=== PATIENT | male | born 1975 | race Caucasian/White ===

== ENCOUNTER 2016-11-28 12:04 | Emergency (ER) | payer OTHER ==
[~2016-11-28] VITALS: Ht 175.3 cm; Wt 68.4 kg
[2016-11-28] MEDS ORDERED: ONDANSETRON 4MG/2ML VIAL (J2405) IV ONE (13:00)
[2016-11-28] MEDS ORDERED: NS 1,000 ML IV ONE ×2 (13:00→14:00)
[2016-11-28 13:23] LABS: ALBUMIN 4.3 GM/DL (3.2-5.2); ALBUMIN/GLOBULIN RATIO 1.48 (1.00-1.93); ALKALINE PHOSPHATASE 87 U/L (45-117); ALT/SGPT 27 U/L (12-78); ANION GAP 12 MEQ/L (8-16); AST/SGOT 16 U/L (15-37); BILIRUBIN,DIRECT 0.5 MG/DL (0.0-0.2); BILIRUBIN,TOTAL 1.5 MG/DL (0.2-1.0); BLOOD UREA NITROGEN 14 MG/DL (7-18); CALCIUM LEVEL 9.5 MG/DL (8.5-10.1); CARBON DIOXIDE LEVEL 21 MEQ/L (21-32); CHLORIDE LEVEL 108 MEQ/L (98-107); CREATININE FOR GFR 1.03 MG/DL (0.70-1.30); GLOMERULAR FILTRATION RATE > 60.0 (>60); GLUCOSE, FASTING 130 MG/DL (70-105); MAGNESIUM LEVEL 1.8 MG/DL (1.8-2.4); POTASSIUM SERUM 3.7 MEQ/L (3.5-5.1); SODIUM LEVEL 141 MEQ/L (136-145); TOTAL PROTEIN 7.2 GM/DL (6.4-8.2)
[2016-11-28 13:36] LABS: BASO # 0.2 K/mm3 (0.0-0.2); BASO % 0.9 % (0.0-1.0); EOS % 0.2 % (0.0-3.0); LARGE UNSTAINED CELL # 0.3 K/mm3 (0.0-0.4); LYMPH # 1.3 K/mm3 (1.5-4.5); LYMPH % 5.1 % (24.0-44.0); MEAN CORPUSCULAR HEMOGLOBIN 29.7 pg (27.0-33.0); MEAN CORPUSCULAR HGB CONC 34.8 g/dl (32.0-36.5); MEAN CORPUSCULAR VOLUME 85.4 fl (80.0-96.0); MONO # 0.8 K/mm3 (0.0-0.8); MONO % 3.2 % (0.0-5.0); NEUTROPHILS # 22.9 K/mm3 (1.8-7.7); NEUTROPHILS % 89.7 % (36.0-66.0); PLATELET COUNT, AUTOMATED 223 k/mm3 (150-450); RED CELL DISTRIBUTION WIDTH 13.4 % (11.5-14.5); WHITE BLOOD COUNT 25.5 K/mm3 (4.0-10.0)
[2016-11-28] MEDS ORDERED: METOCLOPRAMIDE INJ 10MG/2ML VIAL (J2765) IV ONE (14:00)
[2016-11-28 15:12] LABS: METHADONE URINE NEGATIVE (NEGATIVE)
[2016-11-28] MEDS ORDERED: ISOVUE-370 76% 100ML VIAL (Q9967) As Ordered ONE (15:40)
[2016-11-28] MEDS ORDERED: PROMETHAZINE INJ 25 MG/ML VIAL (J2550) IV ONE (15:45)
[2016-11-28] MEDS ORDERED: ZOFR4TAB3 PO (16:37)
[2016-11-28 16:55] VITALS: BP 130/75
--- NOTE | 2016-11-29 06:44 | REP ---
RIGHT UPPER QUADRANT ULTRASOUND: Real-time sonographic evaluation of right upper quadrant performed. The gallbladder demonstrates no evidence of intraluminal sludge or calculi, wall thickening or pericholecystic fluid. There is no intrahepatic or extrahepatic biliary dilatation, common bile duct measuring 4 mm in diameter. The liver and pancreas demonstrate no gross abnormality, pancreas is not optimally seen due to overlying bowel gas. Right kidney demonstrates no hydronephrosis or nephrolithiasis with normal size at 10.6 cm in length. IMPRESSION: Essentially negative right upper quadrant ultrasound. Signed by Martinez Silva MD 11/29/2016 07:23 P
--- NOTE | 2016-11-29 07:00 | REP ---
CT ABDOMEN AND PELVIS WITH IV CONTRAST: TECHNIQUE: Axial contrast enhanced images from the lung bases to the pubic symphysis using 100 mL Isovue 370 intravenous contrast material with multiplanar reformations. The visualized lung bases are clear. The liver, spleen, adrenals, pancreas and kidneys are normal in appearance. There is no hydronephrosis. There is no abdominal aortic aneurysm with mild atherosclerotic calcifications present. There is no adenopathy. There is no free air or free fluid. There is no bowel wall thickening. The appendix is normal. No pelvic mass is seen. Urinary bladder is mildly distended and appears grossly unremarkable. IMPRESSION: Negative CT abdomen and pelvis with IV contrast. No evidence of acute abnormality. No acute appendicitis. No free air or free fluid. Signed by Martinez Silva MD 11/29/2016 07:23 P
== END 2016-11-28 17:22 | disposition home or self-care (01) ==
LOC: M ED 12:58
DX: G44.209 Tension-type headache, unspecified, not intractable (principal); R10.11 Right upper quadrant pain; R11.0 Nausea; F17.200 Nicotine dependence, unspecified, uncomplicated; F12.10 Cannabis abuse, uncomplicated
CPT/HCPCS: 74177; 76705; 80048; 80076; 80307; 81001; 82550; 83690; 83735; 85025; 96361; 96374; 96375; 99283; J2405; J2765; Q9967

== ENCOUNTER → 2024-01-13 | Outpatient (CLI) | payer OTHER ==
[~2024-01-13] MED LIST: ZOFR4TAB14 PO
[2024-01-13 18:55] LABS: BASO # 0.1 10^3/uL (0.0-0.2); BASO % 0.8 % (0.0-1.0); EOS # 0.3 10^3/uL (0.0-0.5); EOS % 2.2 % (0.0-3.0); HEMATOCRIT 47.7 % (42.0-52.0); HEMOGLOBIN 15.9 g/dl (13.5-17.5); LYMPH # 2.8 10^3/uL (1.5-5.0); LYMPH % 22.2 % (24.0-44.0); MEAN CORPUSCULAR HEMOGLOBIN 28.1 pg (27.0-33.0); MEAN CORPUSCULAR HGB CONC 33.3 g/dl (32.0-36.5); MEAN CORPUSCULAR VOLUME 84.4 fl (80.0-96.0); MONO # 0.9 10^3/uL (0.0-0.8); MONO % 7.5 % (2.0-8.0); NEUTROPHILS # 8.4 10^3/uL (1.5-8.5); NEUTROPHILS % 66.7 % (36.0-66.0); PLATELET COUNT, AUTOMATED 201 10^3/uL (150-450); RED BLOOD COUNT 5.65 10^6/uL (4.30-6.10); WHITE BLOOD COUNT 12.5 10^3/uL (4.0-10.0)
[2024-01-13 19:24] LABS: LIPASE 35 U/L (12-53)
[2024-01-13 19:26] LABS: ALBUMIN 3.9 G/DL (3.2-5.2); ALKALINE PHOSPHATASE 90 U/L (46-116); ALT/SGPT 32 U/L (7.0-40); AMYLASE 68 U/L (30-118); AST/SGOT 14 U/L (<34); BILIRUBIN,TOTAL 0.4 MG/DL (0.3-1.2); BLOOD UREA NITROGEN 13 MG/DL (9-23); CALCIUM LEVEL 9.6 MG/DL (8.5-10.1); CARBON DIOXIDE LEVEL 24 MMOL/L (20-31); CHLORIDE LEVEL 108 MMOL/L (98-107); CREATININE FOR GFR 0.89 MG/DL (0.70-1.30); GLOMERULAR FILTRATION RATE > 60.0 (>60); GLUCOSE, FASTING 95 MG/DL (60-100); POTASSIUM SERUM 4.3 MMOL/L (3.5-5.1); SODIUM LEVEL 136 MMOL/L (136-145)
== END ==
LOC: M WUC 13:06
PROVIDERS: ATTEND Family Medicine
DX: R10.84 Generalized abdominal pain (principal)